=== PATIENT | female | born 1995 | race Caucasian/White ===

== ENCOUNTER 2018-01-05 15:38 | Emergency (ER) | payer OTHER ==
[2018-01-05] MEDS: IBUPROFEN 600 MG TAB PO (16:36)
== END 2018-01-05 18:32 | disposition home or self-care (01) ==
LOC: FTE 15:38
DX: M25.561 Pain in right knee (principal); M25.562 Pain in left knee
CPT/HCPCS: 73562; 73562-50; 99284-25

== ENCOUNTER 2018-05-08 09:14 | Emergency (ER) | payer OTHER ==
[2018-05-08] MEDS: IBUPROFEN 600 MG TAB PO (09:58)
== END 2018-05-08 11:00 | disposition home or self-care (01) ==
LOC: FTE 09:14
DX: S93.504A Unspecified sprain of right lesser toe(s), initial encounter (principal); X58.XXXA Exposure to other specified factors, initial encounter; Y92.9 Unspecified place or not applicable
CPT/HCPCS: 73660; 99283-25